=== PATIENT | male | born 1965 | race Caucasian/White ===

== ENCOUNTER 2016-10-05 14:38 | Inpatient (IN) | payer OTHER ==
[~2016-10-05] VITALS: Ht 170.2 cm; Wt 80.7 kg
[~2016-10-05 14:38] MED LIST: INDO50CA PO; IPRAAER INH; IPRASOL INH; PRED20 PO
[2016-10-05] MEDS ORDERED: SODIUM CHLOR 0.9% 1000 ML INJ 1,000 ML IV SCH (15:51)
[2016-10-05] MEDS ORDERED: ONDANSETRON HCL 4 MG/2 ML VIAL IVP PRN (16:00)
[2016-10-05] MEDS ORDERED: SODIUM CHLORIDE 0.9% FLUSH 10 ML FLUSH IV FLUSH PRN (16:00)
[2016-10-05] MEDS ORDERED: MAGNESIUM HYDROXIDE SUSP 30 ML CUP PO PRN (16:00)
[2016-10-05] MEDS ORDERED: ACETAMINOPHEN 325 MG TAB PO PRN (16:00)
[2016-10-05 20:00] VITALS: BP 116/80; PULSE 90; RESP 20; TEMP 97.9; O2SAT 96
--- NOTE | 2016-10-05 21:28 | HHI.HP ---
HPI Service [facility] Primary [facility] Physician Non-Staff Admission Diagnosis Diagnoses: Chief Complaint: Shortness of breath, wheezing, cough Travel History International Travel<30 Days: No Contact w/Intl Traveler <30 Da: No Traveled to Known Affected Are: No History of Present Illness The patient is a very pleasant 51-year-old male with past medical history history of tobaccoism, head and neck cancer with radiation and chemotherapy in 2012, COPD who came to the emergency room in [facility] for evaluation of progressive shortness of breath, weakness, cough. Patient says he started to cough couple of days ago getting worse associated with shortness of breath a lot of chest pain especially when he takes a deep breath. Says he was not able to have her nebulizers because the chest pain was so severe. He feels very weak. He has some chills and fevers 2 days ago. No nausea or vomiting no diarrhea or constipation. He however was not able to eat today due to decreased appetite and fatigue. There is no lost weight. Says he finished chemotherapy and radiation in 2013 and was told by his oncologist that he is cancer free. He however continues to smoke. He says he quit 3 days ago she started to feel more short of breath and started to cough. Says he is getting worse. Says he was not able to eat or palpable days without well. His urine is darker than usual. No abdominal pain. No diarrhea or constipation. No sick contacts. Review of Systems Except as stated in HPI: all other systems reviewed are Neg Past Family Social History Past Medical History History of neck and head cancer with radiation and chemotherapy 2012, patient says he is cancer free now Tobaccoism COPD Past Surgical History Chest tube, port, feeding tube all taken out in 2013 Reported Medications Reported Meds & Active Scripts Active Reported Combivent Respimat Inh (Ipratropium-Albuterol Inh) 20-100 [facility]/Act Aero 1 Puff INH QID Duoneb (Ipratropium-Albuterol Neb) 0.5-2.5 Mg/3 Ml Neb 1 Nebule INH Q4HR NEB Allergies: Coded Allergies: Morphine (Verified Allergy, Intermediate, 10/05/16) diaphoresis Family History Father was diagnosed with diabetes at the age of 76 Mother heart disease - rheumatic fever Social History Heavy smoking history: He started to smoke cigarettes at the age of 11 he smoked 3 packs per day until 2000. He seems to thousand and 1 he is smoking cigars 4-5 daily. He quit 3 days ago. Occasional alcohol use. Denies illicit drug use. Physical Exam Physical Exam GENERAL: This is a pleasant 51 yo male, well-nourished, well-developed patient, in no apparent distress. SKIN: No rashes, ecchymoses or lesions. Cool and dry. HEAD: Atraumatic. Normocephalic. No temporal or scalp tenderness. EYES: Pupils equal round and reactive. Extraocular motions intact. No scleral icterus. No injection or drainage. ENT: Nose without bleeding, purulent drainage or septal hematoma. Throat without erythema, tonsillar hypertrophy or exudate. Uvula midline. Airway patent. NECK: Trachea midline. No JVD or lymphadenopathy. Supple, nontender, no meningeal signs. CARDIOVASCULAR: Regular rate and rhythm without murmurs, gallops, or rubs. RESPIRATORY: Decreased breath sounds, scattered wheezing. Bronchial breath sounds. +Cough. GASTROINTESTINAL: Abdomen soft, non-tender, nondistended. No hepato-splenomegaly , or palpable masses. No guarding. MUSCULOSKELETAL: Extremities without clubbing, cyanosis, or edema. No joint tenderness, effusion, or edema noted. No calf tenderness. Negative Homans sign bilaterally. NEUROLOGICAL: Awake and alert. Cranial nerves II through XII intact. Motor and sensory grossly within normal limits. Five out of 5 muscle strength in all muscle groups. Normal speech. Assessment and Plan Assessment and Plan 51-year-old male with past medical history history of tobaccoism, h/o head and neck cancer with radiation and chemotherapy in 2013, COPD Left lower lobe Pneumonia COPD with exacerbation Pleuritic chest pain Acute respiratory failure . Patient is desating on room air at 87 % and is satting 93 % while on 2 L NC Chest x-ray reviewed and finding discussed with ER physician but Melisa Rozet patient with LLL pneumonia Blood cultures obtained. No leukocytosis, patient with temperature of 100.7 and tachycardic on admission Start azithromycin IV and Rocephin IV antibiotics. Influenza A and B negative. Check sputum cultures. Check urine antigen for Legionella and pneumococcal. Mucinex IV fluids Pain medications per pain scale. Incentive spirometry Oxygen supplement, keep oxygen saturation more than 92% Given the history of cancer as well as current tobaccoism we'll do CT chest to evaluate for possible mass Consult pulmonology if continues to deteriorate or if mass on CT Tobacco use. Counselled extensively H/o head and neck cancer with radiation and chemotherapy in 2013 patient says he is cancer free. DVT prophylaxis with SCD/teds/Lovenox Discussed Condition With Patient, nurse, emergency room physician in [facility] family at bedside ( ) Physician Certification 2 Midnight Certification Type: Admission for Inpatient Services Order for Inpatient Services The services are ordered in accordance with Medicare regulations or non- Medicare payer requirements, as applicable. In the case of services not specified as inpatient-only, they are appropriately provided as inpatient services in accordance with the 2-midnight benchmark. Estimated LOS (days): 3 days is the estimated time the patient will need to remain in the hospital, assuming treatment plan goals are met and no additional complications. Post-Hospital Plan: Home Kalyani Jordan MD October 05, 2016 21:28
[2016-10-05] MEDS: guaiFENesin E.R. 600 MG TAB PO SCH (22:04)
[2016-10-05] MEDS: ENOXAPARIN SODIUM 40 MG/0.4 ML SYRINGE SQ SCH (22:05)
[2016-10-05] MEDS: SODIUM CHLORIDE 0.9% FLUSH 10 ML FLUSH IV FLUSH SCH (22:05)
[2016-10-05] MEDS: RESP: ALBUTEROL 2.5 MG/IPRATROPIUM 0.5 MG NEB (PRN) NEB (22:09)
[2016-10-05 22:10] VITALS: O2SAT 94
[2016-10-06] VITALS (7 sets, daily range): BP systolic 101–122; BP diastolic 67–81; PULSE 76–91; RESP 18–22; TEMP 95.5–97.9; O2SAT 93–98
[2016-10-06] MEDS ORDERED: IOHEXOL 350 MG/ML 10 ML VIAL (for RAD DIAG) IV ONE (01:02)
--- NOTE | 2016-10-06 01:16 | RADHPO ---
EXAM DATE/TIME: 10/06/2016 00:33 [facility] COMPARISON: No previous studies available for comparison. INDICATIONS : Shortness of breath. IV CONTRAST: 70 cc Omnipaque 350 (iohexol) IV RADIATION DOSE: 10.65 CTDIvol (mGy) MEDICAL HISTORY : Chronic obstructive pulmonary disease. Carcinoma, esophageal. SURGICAL HISTORY : None. ENCOUNTER: Initial ACUITY: 1 day PAIN SCALE: 0/10 LOCATION: chest TECHNIQUE: Volumetric scanning of the chest was performed. Using automated exposure control and adjustment of t he mA and/or kV according to patient size, radiation dose was kept as low as reasonably achievable to obtain optimal diagnostic quality images. FINDINGS: There is fairly dense consolidation in the posterior aspect of the left lower lobe with air bronchogr ams. There is also some patchy airspace disease in the left upper lobe especially in the lingula. Fin dings are most characteristic of a bronchopneumonia. Mildly enlarged left hilar and subcarinal lymph nodes. There is some mild distal airway disease the right lung base. Mild emphysema predominantly in the upper lobes, centrilobular. There is no pleural or pericardial effusion. No acute bony abnormality. No acute findings in the uppe r abdomen. Mild fatty liver. Benign calcifications are seen. CONCLUSION: 1. Airspace consolidation posterior aspect left lower lobe and patchy opacity left upper lobe most ch aracteristic of a left-sided bronchopneumonia. Mild emphysema and mild distal airway disease right edgar ng base. Mild left hilar and subcarinal adenopathy probably reactive. 2. Benign-appearing calcification upper spleen. Patrice Patiño MD on October 06, 2016 at 1:07 Board Certified Radiologist. This report was verified electronically.
[2016-10-06] MEDS: RESP: ALBUTEROL 2.5 MG/IPRATROPIUM 0.5 MG NEB (PRN) NEB ×4 (07:54→19:30)
[2016-10-06] MEDS: ACETAMINOPHEN/HYDROcodone 325 MG/5 MG TAB PO PRN ×2 (08:10→14:56)
[2016-10-06] MEDS: SODIUM CHLORIDE 0.9% FLUSH 10 ML FLUSH IV FLUSH SCH ×2 (08:10→22:05)
[2016-10-06] MEDS: guaiFENesin E.R. 600 MG TAB PO SCH ×2 (08:11→22:06)
[2016-10-06] MEDS ORDERED: guaiFENesin E.R. 600 MG TAB PO SCH (09:00)
[2016-10-06] MEDS ORDERED: PNEUMOCOCCAL POLYVALENT INJ 25 MCG/0.5 ML SYR IM ONE (09:00)
--- NOTE | 2016-10-06 10:36 | HHI.PR ---
Subjective Remarks With cough. Chills overnight, no fever. Chest pain with cough and deep breath. Less nausea, he is able to eat and keep down food. No diarrhea. Less wheezing. Less sob. + cough yellow sputum. Objective Vitals Vital Signs Date Time Temp Pulse Resp B/P Pulse Ox O2 Delivery O2 Flow Rate FiO2 10/06/16 09:49 96.5 84 19 111/81 96 10/06/16 09:13 18 10/06/16 07:55 98 Nasal Cannula 2.00 10/06/16 00:00 96.7 81 18 101/67 93 10/05/16 22:10 94 Nasal Cannula 2.00 10/05/16 20:00 97.9 90 20 116/80 96 I/O 10/05/16 10/05/16 10/05/16 10/06/16 10/06/16 10/06/16 07:00 15:00 23:00 07:00 15:00 23:00 Intake Total 480 ml 480 ml Balance 480 ml 480 ml Intake Oral 480 ml 480 ml # Voids 2 # Bowel Movements 0 Imaging Last Impressions Chest CT 10/05/16 0000 Signed Impressions: Service Date/Time: Thursday, October 06, 2016 00:33 - CONCLUSION: 1. Airspace consolidation posterior aspect left lower lobe and patchy opacity left upper lobe most characteristic of a left-sided bronchopneumonia. Mild emphysema and mild distal airway disease right lung base. Mild left hilar and subcarinal adenopathy probably reactive. 2. Benign-appearing calcification upper spleen. Patrice Patiño MD Objective Remarks GENERAL: This is a pleasant 51 yo male, well-nourished, well-developed patient, in no apparent distress. SKIN: No rashes, ecchymoses or lesions. Cool and dry. HEAD: Atraumatic. Normocephalic. No temporal or scalp tenderness. EYES: Pupils equal round and reactive. Extraocular motions intact. No scleral icterus. No injection or drainage. ENT: Nose without bleeding, purulent drainage or septal hematoma. Throat without erythema, tonsillar hypertrophy or exudate. Uvula midline. Airway patent. NECK: Trachea midline. No JVD or lymphadenopathy. Supple, nontender, no meningeal signs. CARDIOVASCULAR: Regular rate and rhythm without murmurs, gallops, or rubs. RESPIRATORY: Decreased breath sounds, scattered wheezing. Bronchial breath sounds. +Cough. GASTROINTESTINAL: Abdomen soft, non-tender, nondistended. No hepato-splenomegaly , or palpable masses. No guarding. MUSCULOSKELETAL: Extremities without clubbing, cyanosis, or edema. No joint tenderness, effusion, or edema noted. No calf tenderness. Negative Homans sign bilaterally. NEUROLOGICAL: Awake and alert. Cranial nerves II through XII intact. Motor and sensory grossly within normal limits. Five out of 5 muscle strength in all muscle groups. Normal speech. A/P Assessment and Plan 51-year-old male with past medical history history of tobaccoism, h/o head and neck cancer with radiation and chemotherapy in 2013, COPD Left lower lobe Pneumonia COPD with exacerbation Pleuritic chest pain Acute respiratory failure . Patient is desating on room air at 87 % and is satting 93 % while on 2 L NC Chest x-ray reviewed and finding discussed with ER physician but Melisa Murphy patient with LLL pneumonia Blood cultures obtained. No leukocytosis, patient with temperature of 100.7 and tachycardic on admission Start azithromycin IV and Rocephin IV antibiotics. Influenza A and B negative. Check sputum cultures. Check urine antigen for Legionella and pneumococcal are negative Mucinex IV fluids Pain medications per pain scale. Incentive spirometry Oxygen supplement, keep oxygen saturation more than 92% Given the history of cancer as well as current tobaccoism we'll do CT chest to evaluate for possible mass Consult pulmonology if continues to deteriorate or if mass on CT Tobacco use. Counselled extensively H/o head and neck cancer with radiation and chemotherapy in 2012 patient says he is cancer free. DVT prophylaxis with SCD/teds/Lovenox Discussed Condition With Patient, nurse, family at bedside () Kalyani Jordan MD October 06, 2016 10:36
[2016-10-06] MEDS ORDERED: cefTRIAXone INJ 1,000 MG in SODIUM CHLORIDE 0.9% INJ 100 ML IV SCH (15:00)
[2016-10-06] MEDS ORDERED: AZITHROMYCIN INJ 500 MG in SODIUM CHLOR 0.9% 250 ML INJ 250 ML IV SCH (16:00)
[2016-10-06] MEDS: ENOXAPARIN SODIUM 40 MG/0.4 ML SYRINGE SQ SCH (22:06)
[2016-10-07 00:06] VITALS: BP 119/87; PULSE 83; RESP 20; TEMP 96.5; O2SAT 95
[2016-10-07] MEDS: RESP: ALBUTEROL 2.5 MG/IPRATROPIUM 0.5 MG NEB (PRN) NEB (07:29)
[2016-10-07 07:31] VITALS: O2SAT 94
[2016-10-07 07:45] LABS: AUTOMATED NEUTROPHIL # 7.9 TH/MM3 (1.8-7.7); BASOPHIL % 0.2 % (0.0-2.0); EOSINOPHIL % 0.2 % (0.0-4.0); HEMATOCRIT 33.9 % (39.0-51.0); LYMPH % 10.7 % (9.0-44.0); MEAN CELL VOLUME 87.6 FL (80.0-100.0); MEAN CORPUSCULAR HEMOGLOBIN 30.1 PG (27.0-34.0); MEAN CORPUSCULAR HGB CONC 34.3 % (32.0-36.0); NEUT % 83.9 % (16.0-70.0); PLATELET COUNT 221 TH/MM3 (150-450); RED BLOOD COUNT 3.87 MIL/MM3 (4.50-5.90); RED CELL DISTRIBUTION WIDTH 13.9 % (11.6-17.2); WHITE BLOOD COUNT 9.4 TH/MM3 (4.0-11.0)
[2016-10-07 07:47] LABS: HEMO FLAGS AUTO DIFF
[2016-10-07 07:58] LABS: POTASSIUM 3.6 MEQ/L (3.5-5.1)
[2016-10-07 08:00] VITALS: BP 115/77; PULSE 78; RESP 16; TEMP 96.4; O2SAT 95
[2016-10-07 08:02] LABS: BICARBONATE 27.1 MEQ/L (21.0-32.0); MAGNESIUM 2.4 MG/DL (1.5-2.5)
[2016-10-07 08:03] LABS: SCAN/DIFF AUTO DIFF CONFIRMED
[2016-10-07] MEDS: guaiFENesin E.R. 600 MG TAB PO SCH (08:26)
[2016-10-07] MEDS: SODIUM CHLORIDE 0.9% FLUSH 10 ML FLUSH IV FLUSH SCH (08:27)
--- NOTE | 2016-10-07 08:44 | HHI.PR ---
Subjective Remarks Feels much better. He is satting well on room air now. Less cough. Feels less congested. No fever or chills overnight. No n/v/d/c. Eating well. No wheezing. Passed walking test. Wants to go home. Objective Vitals Vital Signs Date Time Temp Pulse Resp B/P Pulse Ox O2 Delivery O2 Flow Rate FiO2 10/07/16 08:00 96.4 78 16 115/77 95 10/07/16 07:31 94 21 10/07/16 00:06 96.5 83 20 119/87 95 10/06/16 22:23 94 21 10/06/16 20:17 97.9 76 22 111/70 94 10/06/16 16:23 95.7 91 18 117/80 96 10/06/16 13:28 95.5 91 19 122/79 97 10/06/16 09:49 96.5 84 19 111/81 96 10/06/16 09:13 18 I/O 10/06/16 10/06/16 10/06/16 10/07/16 10/07/16 10/07/16 07:00 15:00 23:00 07:00 15:00 23:00 Intake Total 480 ml 1705 ml Balance 480 ml 1705 ml Intake Oral 480 ml 1705 ml # Voids 2 5 2 # Bowel Movements 0 1 Result Diagram: 10/07/16 0711 10/07/16 0711 Imaging Last Impressions Chest CT 10/05/16 0000 Signed Impressions: Service Date/Time: Thursday, October 06, 2016 00:33 - CONCLUSION: 1. Airspace consolidation posterior aspect left lower lobe and patchy opacity left upper lobe most characteristic of a left-sided bronchopneumonia. Mild emphysema and mild distal airway disease right lung base. Mild left hilar and subcarinal adenopathy probably reactive. 2. Benign-appearing calcification upper spleen. Patrice Patiño MD Objective Remarks GENERAL: This is a pleasant 51 yo male, well-nourished, well-developed patient, in no apparent distress. SKIN: No rashes, ecchymoses or lesions. Cool and dry. HEAD: Atraumatic. Normocephalic. No temporal or scalp tenderness. EYES: Pupils equal round and reactive. Extraocular motions intact. No scleral icterus. No injection or drainage. ENT: Nose without bleeding, purulent drainage or septal hematoma. Throat without erythema, tonsillar hypertrophy or exudate. Uvula midline. Airway patent. NECK: Trachea midline. No JVD or lymphadenopathy. Supple, nontender, no meningeal signs. CARDIOVASCULAR: Regular rate and rhythm without murmurs, gallops, or rubs. RESPIRATORY: Decreased breath sounds, scattered wheezing. Bronchial breath sounds. +Cough. GASTROINTESTINAL: Abdomen soft, non-tender, nondistended. No hepato-splenomegaly , or palpable masses. No guarding. MUSCULOSKELETAL: Extremities without clubbing, cyanosis, or edema. No joint tenderness, effusion, or edema noted. No calf tenderness. Negative Homans sign bilaterally. NEUROLOGICAL: Awake and alert. Cranial nerves II through XII intact. Motor and sensory grossly within normal limits. Five out of 5 muscle strength in all muscle groups. Normal speech. A/P Assessment and Plan 51-year-old male with past medical history history of tobaccoism, h/o head and neck cancer with radiation and chemotherapy in 2012, COPD Left lower lobe Pneumonia. COPD with exacerbation. Pleuritic chest pain. Resolved. Acute respiratory failure . Patient is desating on room air at 87 % and is satting 93 % while on 2 L NC on admission. Improved. Passed O2 walkign test. Chest x-ray reviewed and finding discussed with ER physician but Melisa Murphy patient with LLL pneumonia Blood cultures obtained. No leukocytosis, patient with temperature of 100.7 and tachycardic on admission Received azithromycin IV and Rocephin IV antibiotics. Will give ceftin at [place]. Influenza A and B negative. Check sputum cultures. Check urine antigen for Legionella and pneumococcal are negative. Mucinex IV fluids Pain medications per pain scale. Incentive spirometry Oxygen supplement, keep oxygen saturation more than 92% Given the history of cancer as well as current tobaccoism. CT chest reviewed consistent with bronchopneumonia. Consult pulmonology if continues to deteriorate or if mass on CT Tobacco use. Counselled extensively H/o head and neck cancer with radiation and chemotherapy in 2012 patient says he is cancer free. DVT prophylaxis with SCD/teds/Lovenox Discussed Condition With Patient, nurse, respiratory therapist Patient improved unexpectedly quicker. Passed walking test. Discharge home in stable condition. To follow up as OP with PCP and consultants. Kalyani Jordan MD October 07, 2016 08:44
[2016-10-07] MEDS ORDERED: NORC5TAB PO (08:49)
[2016-10-07] MEDS ORDERED: MUCI600T PO (08:49)
[2016-10-07] MEDS ORDERED: CEFT500T3 PO (08:49)
--- NOTE | 2016-10-07 08:50 | HHI.DS ---
Discharge Summary Admission Date October 05, 2016 at 21:29 Discharge Date: October 07, 2016 Admitting Diagnosis bronchopneumonia, COPD exacerbation, acute respiratory failure (1) Hypoxia ICD Code: R09.02 Diagnosis: Principal (2) Pneumonia ICD Code: J18.9 Diagnosis: Principal (3) COPD exacerbation ICD Code: J44.1 Diagnosis: Principal Procedures none Brief History - From Admission The patient is a very pleasant 51-year-old male with past medical history history of tobaccoism, head and neck cancer with radiation and chemotherapy in 2012, COPD who came to the emergency room in [facility] for evaluation of progressive shortness of breath, weakness, cough. Patient says he started to cough couple of days ago getting worse associated with shortness of breath a lot of chest pain especially when he takes a deep breath. Says he was not able to have her nebulizers because the chest pain was so severe. He feels very weak. He has some chills and fevers 2 days ago. No nausea or vomiting no diarrhea or constipation. He however was not able to eat today due to decreased appetite and fatigue. There is no lost weight. Says he finished chemotherapy and radiation in 2012 and was told by his oncologist that he is cancer free. He however continues to smoke. He says he quit 3 days ago she started to feel more short of breath and started to cough. Says he is getting worse. Says he was not able to eat or palpable days without well. His urine is darker than usual. No abdominal pain. No diarrhea or constipation. No sick contacts. CBC/BMP: 10/07/16 0711 10/07/16 0711 Significant Findings Laboratory Tests Test 10/07/16 07:11 Red Blood Count 3.87 MIL/MM3 (4.50-5.90) Hemoglobin 11.6 GM/DL (13.0-17.0) Hematocrit 33.9 % (39.0-51.0) Neutrophils (%) (Auto) 83.9 % (16.0-70.0) Neutrophils # (Auto) 7.9 TH/MM3 (1.8-7.7) Blood Urea Nitrogen 24 MG/DL (7-18) Random Glucose 117 MG/DL (74-106) Imaging Last Impressions Chest CT 10/05/16 0000 Signed Impressions: Service Date/Time: Thursday, October 06, 2016 00:33 - CONCLUSION: 1. Airspace consolidation posterior aspect left lower lobe and patchy opacity left upper lobe most characteristic of a left-sided bronchopneumonia. Mild emphysema and mild distal airway disease right lung base. Mild left hilar and subcarinal adenopathy probably reactive. 2. Benign-appearing calcification upper spleen. Patrice Patiño MD PE at Discharge GENERAL: This is a pleasant 51 yo male, well-nourished, well-developed patient, in no apparent distress. SKIN: No rashes, ecchymoses or lesions. Cool and dry. HEAD: Atraumatic. Normocephalic. No temporal or scalp tenderness. EYES: Pupils equal round and reactive. Extraocular motions intact. No scleral icterus. No injection or drainage. ENT: Nose without bleeding, purulent drainage or septal hematoma. Throat without erythema, tonsillar hypertrophy or exudate. Uvula midline. Airway patent. NECK: Trachea midline. No JVD or lymphadenopathy. Supple, nontender, no meningeal signs. CARDIOVASCULAR: Regular rate and rhythm without murmurs, gallops, or rubs. RESPIRATORY: Decreased breath sounds, scattered wheezing. Bronchial breath sounds. +Cough. GASTROINTESTINAL: Abdomen soft, non-tender, nondistended. No hepato-splenomegaly , or palpable masses. No guarding. MUSCULOSKELETAL: Extremities without clubbing, cyanosis, or edema. No joint tenderness, effusion, or edema noted. No calf tenderness. Negative Homans sign bilaterally. NEUROLOGICAL: Awake and alert. Cranial nerves II through XII intact. Motor and sensory grossly within normal limits. Five out of 5 muscle strength in all muscle groups. Normal speech. Hospital Course 51-year-old male with past medical history history of tobaccoism, h/o head and neck cancer with radiation and chemotherapy in 2012, COPD Left lower lobe Pneumonia. COPD with exacerbation. Pleuritic chest pain. Resolved. Acute respiratory failure . Patient is desating on room air at 87 % and is satting 93 % while on 2 L NC on admission. Improved. Passed O2 walkign test. Chest x-ray reviewed and finding discussed with ER physician but Melisa Murphy patient with LLL pneumonia Blood cultures obtained. No leukocytosis, patient with temperature of 100.7 and tachycardic on admission Received azithromycin IV and Rocephin IV antibiotics. Will give ceftin at [place]. Influenza A and B negative. Check sputum cultures. Check urine antigen for Legionella and pneumococcal are negative. Mucinex IV fluids Pain medications per pain scale. Incentive spirometry Oxygen supplement, keep oxygen saturation more than 92% Given the history of cancer as well as current tobaccoism. CT chest reviewed consistent with bronchopneumonia. Consult pulmonology if continues to deteriorate or if mass on CT Tobacco use. Counselled extensively H/o head and neck cancer with radiation and chemotherapy in 2012 patient says he is cancer free. DVT prophylaxis with SCD/teds/Lovenox Discussed Condition With Patient, nurse, respiratory therapist Patient improved unexpectedly quicker. Passed walking test. Discharge home in stable condition. To follow up as OP with PCP and consultants. Pt Condition on Discharge: Stable Discharge Disposition: Discharge Home Discharge Time: > 30 minutes Discharge Instructions DIET: Follow Instructions for: Heart Healthy Diet Activities you can perform: Regular-No Restrictions Follow up Referrals: PCP Follow-up - 3-5 Days New Medications: Budesonide Powder Inh (Pulmicort Flexhaler) 180 Mcg/Act Inhp 180 MCG INH Q12HR Asthma Management #1 Ref 0 INHALER Cefuroxime (Ceftin) 500 Mg Tab 500 MG PO BID Infection #28 Ref 0 TAB Hydrocodone-Acetaminophen ([place]) 5-325 mg Tab 1 TAB PO Q6H PRN PAIN #20 Ref 0 TAB Prednisone (21) 10 mg tab Dose Pack (Prednisone (21) 10 mg tab Dose Pack) 10 Mg Pack 10 MG PO DIRECTED Inflammation #1 Ref 0 DSPK Guaifenesin ER 12 HR (Mucinex ER 12 HR) 600 Mg [place] 600 MG PO BID cough #10 TAB Continued Medications: Ipratropium-Albuterol Inh (Combivent Respimat Inh) 20-100 [facility]/Act Aero 1 PUFF INH QID Asthma Management #1 Ref 0 INHALER Ipratropium-Albuterol Neb (Duoneb) 0.5-2.5 Mg/3 Ml Neb 1 NEBULE INH Q4HR NEB SHORTNESS OF BREATH #120 Ref 0 NEBULE Kalyani Jordan MD October 07, 2016 08:49
[2016-10-07] MEDS ORDERED: PULM180I INH (08:53)
[2016-10-07] MEDS ORDERED: PRED10PA PO (08:53)
== END 2016-10-07 10:35 | disposition home or self-care (01) | DRG 190 ==
LOC: PHEDDLT 14:38 → PH3B 18:56 → OBSVTOIN 21:29
PROVIDERS: ADMIT Hospitalist; ATTEND Hospitalist
DX: J44.0 Chronic obstructive pulmonary disease with (acute) lower respiratory infection (principal); J18.9 Pneumonia, unspecified organism; J96.01 Acute respiratory failure with hypoxia; J44.1 Chronic obstructive pulmonary disease with (acute) exacerbation; F17.290 Nicotine dependence, other tobacco product, uncomplicated; Z92.21 Personal history of antineoplastic chemotherapy; Z92.3 Personal history of irradiation; Z85.89 Personal history of malignant neoplasm of other organs and systems
CPT/HCPCS: 71010; 71260; 80048; 80053; 83605; 83735; 85025; 87040; 87449; 87804; 94150; 94620; 94640; 94664; 94667; 94668; 96365; 96367; 96375; J0456; J0696; J1650; J2930; J7050; Q9967